=== PATIENT | female | born 1940 | race Caucasian/White ===

== ENCOUNTER → 2016-10-12 | Outpatient (CLI) | payer MEDICARE | END | disposition home or self-care (01) | LOC: CFH 11:08 | PROVIDERS: ATTEND Family Medicine | DX: Z12.31 Encounter for screening mammogram for malignant neoplasm of breast (principal) | CPT/HCPCS: G0202 ==

== ENCOUNTER 2017-01-19 07:49 | Day surgery (SDC) | payer MEDICARE ==
[~2017-01-19] VITALS: Ht 165.1 cm; Wt 69.4 kg
[~2017-01-19 07:49] MED LIST: CETI10TA24 PO; GABA800T PO; LACTATED RINGERS 1,000 ML IV SCH; PERP1TAB3 PO; ZONI100C36 PO
[2017-01-19] MEDS ORDERED: LACTATED RINGERS 1,000 ML IV SCH (08:17)
[2017-01-19 08:48] VITALS: BP 134/81
[2017-01-19] MEDS ORDERED: NEOSPORIN OINT, 15GM ONE (09:19)
[2017-01-19] MEDS ORDERED: FENTANYL PF 250 MCG/5ML ONE (09:21)
[2017-01-19] MEDS ORDERED: OXYcodone 5 MG/5 ML ORAL.SOL UDC PO PRN (10:00)
[2017-01-19] MEDS ORDERED: METOPROLOL 1 MG/ML, 5ML IV PRN (10:00)
[2017-01-19] MEDS ORDERED: PROMETHAZINE 25 MG/ML, 1ML IV PRN (10:00)
[2017-01-19] MEDS ORDERED: ACETAMINOPHEN 325 MG TABLET PO PRN (10:00)
[2017-01-19] MEDS ORDERED: FENTANYL PF 100 MCG/2ML IV PRN (10:00)
[2017-01-19] MEDS ORDERED: HYDROmorphone 1 MG/ML, 1ML IV PRN (10:00)
[2017-01-19] MEDS ORDERED: ALBUTEROL/IPRATROPIUM 2.5MG/0.5MG, 3 ML NPPB PRN (10:00)
[2017-01-19] MEDS ORDERED: hydrALAzine 20 MG/ML, 1ML IV PRN (10:00)
[2017-01-19] MEDS ORDERED: FENTANYL PF 100 MCG/2ML ONE (11:22)
[2017-01-19] MEDS ORDERED: ACETAMINOPHEN 650 MG/20.3 ML UDC ONE (11:22)
[2017-01-19] MEDS ORDERED: OXYcodone 5 MG/5 ML ORAL.SOL UDC ONE (11:22)
[2017-01-19] MEDS ORDERED: ROCURONIUM 10 MG/ML ONE (15:41)
[2017-01-19] MEDS ORDERED: PROPOFOL 10 MG/ML, 20ML ONE (15:41)
[2017-01-19] MEDS ORDERED: GLYCOPYRROLATE 0.2MG/1ML ONE (15:41)
[2017-01-19] MEDS ORDERED: DEXAMETHASONE 4 MG/ML, 1ML ONE (15:41)
[2017-01-19] MEDS ORDERED: CEFAZOLIN 1,000 MG ONE (15:41)
[2017-01-19] MEDS ORDERED: EPHEDRINE 50 MG/ML, 1ML ONE (15:41)
[2017-01-19] MEDS ORDERED: NEOSTIGMINE 1 MG/ML, 10ML ONE (15:41)
[2017-01-19] MEDS ORDERED: ONDANSETRON 2MG/ML, 2ML ONE (15:41)
[2017-01-20] MEDS ORDERED: OXYC5CAP2 PO (19:02)
[2017-02-09] MEDS ORDERED: DOCU100T6 PO (15:23)
[2017-02-09] MEDS ORDERED: VITA100020 PO (15:23)
[2017-02-09] MEDS ORDERED: METH500T37 PO (15:23)
== END 2017-01-19 13:30 ==
LOC: OUT 07:49
PROVIDERS: ATTEND Orthopaedic Surgery
DX: M84.552A Pathological fracture in neoplastic disease, left femur, initial encounter for fracture (principal); Z85.3 Personal history of malignant neoplasm of breast; Z90.49 Acquired absence of other specified parts of digestive tract; Z98.890 Other specified postprocedural states; Z88.1 Allergy status to other antibiotic agents; Z91.018 Allergy to other foods
CPT/HCPCS: 27187; 73552; 76000; 82962; 88305; 88341; 88342; 88360; 93005; C1713; J0690; J1100; J2405; J2704; J2710; J3010; J7120; J3490; G0461

== ENCOUNTER 2017-01-20 16:37 | Observation (INO) | payer MEDICARE ==
[~2017-01-20] VITALS: Ht 165.1 cm; Wt 72.6 kg
[~2017-01-20 16:37] MED LIST changes: -LACTATED RINGERS 1,000 ML IV SCH; +ZONI100C13 PO; -ZONI100C36 PO
[2017-01-20 18:56] LABS: HEMATOCRIT 34.3 % (34.6-47.8); HEMOGLOBIN 11.6 g/dL (11.7-16.4); WHITE BLOOD COUNT 8.9 x10^3/uL (3.4-10)
[2017-01-20] MEDS ORDERED: SODIUM CHLORIDE FLUSH 10ML SYR IVF ONE (19:00)
[2017-01-20] MEDS ORDERED: HYDROmorphone 1 MG/ML, 1ML IVPush PRN (19:00)
[2017-01-20] MEDS ORDERED: ONDANSETRON 2MG/ML, 2ML IVPush ONE (19:00)
[2017-01-20] MEDS ORDERED: OXYC5CAP4 PO (19:02)
[2017-01-20 19:08] LABS: BLOOD UREA NITROGEN 19 mg/dL (7-18)
[2017-01-20] MEDS ORDERED: HYDROmorphone 1 MG/ML, 1ML ONE ×2 (19:11→19:41)
[2017-01-20] MEDS ORDERED: ONDANSETRON 2MG/ML, 2ML ONE (19:11)
[2017-01-20] MEDS: PERPHENAZINE 2 MG TABLET PO SCH (22:22)
[2017-01-20] MEDS: AMITRIPTYLINE 10 MG TABLET PO SCH (22:22)
[2017-01-20] MEDS ORDERED: POLYETHYLENE GLYCOL 17 GM PACKET PO PRN (22:30)
[2017-01-20] MEDS ORDERED: DOCUSATE 100 MG CAPSULE PO PRN (22:30)
[2017-01-20] MEDS ORDERED: ENOXAPARIN 40 MG/0.4 ML SQ SCH (22:30)
[2017-01-20] MEDS ORDERED: BISACODYL 10 MG SUPP PR PRN (22:30)
[2017-01-20] MEDS ORDERED: HYDROmorphone 1 MG/ML, 1ML IV PRN (22:30)
[2017-01-20 22:56] VITALS: BP 113/73
[2017-01-21 02:03] VITALS: BP 126/78
[2017-01-21] MEDS: OXYcodone IR 5MG TABLET PO PRN ×3 (05:45→14:47)
[2017-01-21] MEDS: GABAPENTIN 400 MG CAPSULE PO SCH ×2 (08:42→16:31)
[2017-01-21] MEDS: AMITRIPTYLINE 10 MG TABLET PO SCH ×2 (08:43→16:31)
[2017-01-21] MEDS: ZONISAMIDE 50 MG CAPSULE PO SCH ×2 (08:43→16:31)
[2017-01-21] MEDS: PERPHENAZINE 2 MG TABLET PO SCH ×2 (08:43→16:00)
[2017-01-21 08:47] VITALS: BP 112/73
[2017-01-21] MEDS ORDERED: LACTULOSE 10 GM/15 ML UDC PO SCH (09:00)
[2017-01-21] MEDS ORDERED: CETIRIZINE 10 MG TABLET PO SCH (09:00)
[2017-01-21] MEDS ORDERED: ONDANSETRON ODT 4 MG ONE (09:36)
[2017-01-21] MEDS: ONDANSETRON ODT 4 MG PO PRN ×2 (09:38→14:46)
[2017-01-21] MEDS ORDERED: ONDANSETRON 2MG/ML, 2ML IVPush PRN (10:00)
[2017-01-21 14:10] VITALS: BP 102/64
[2017-01-21 17:52] VITALS: BP 98/54
[2017-01-21] MEDS ORDERED: ONDA4TAB13 PO (18:32)
== END 2017-01-21 18:30 ==
LOC: ED 17:38 → INTOOBSV 21:34 → EDIP 21:34 → 4NOR 22:03
PROVIDERS: ADMIT Family Medicine; ATTEND Family Medicine
DX: T84.84XA Pain due to internal orthopedic prosthetic devices, implants and grafts, initial encounter (principal); M25.552 Pain in left hip; M25.562 Pain in left knee; G89.29 Other chronic pain; J30.2 Other seasonal allergic rhinitis; K22.4 Dyskinesia of esophagus; Y92.89 Other specified places as the place of occurrence of the external cause; Z90.49 Acquired absence of other specified parts of digestive tract; Z85.3 Personal history of malignant neoplasm of breast; Z85.830 Personal history of malignant neoplasm of bone
CPT/HCPCS: 36415; 73502; 73552; 80048; 85025; 93971; 96372; 96374; 96375; 97116; 97162; 97166; 99285; G0378; J1170; J1650; J2405; Q0162; Q0175

== ENCOUNTER → 2017-02-09 | Outpatient (CLI) | payer MEDICARE ==
[~2017-02-09] MED LIST changes: +DOCU100T6 PO; +METH500T37 PO; +ONDA4TAB13 PO; +OXYC5CAP2 PO; +VITA100020 PO; -ZONI100C13 PO; +ZONI100C36 PO
[2017-02-09 16:22] LABS: PATH.CAST-FLAG NOT PRESENT; SPERM-FLAG NOT PRESENT; SRC-FLAG NOT PRESENT; XTAL-FLAG NOT PRESENT; YLC-FLAG NOT PRESENT
[2017-02-09 16:33] LABS: BLOOD UREA NITROGEN 15 mg/dL (7-18)
[2017-02-09 16:37] LABS: ASPARTATE AMINO TRANSFERASE 14 U/L (15-37)
[2017-02-09 16:41] LABS: HEMATOCRIT 33.2 % (34.6-47.8); HEMOGLOBIN 11.1 g/dL (11.7-16.4); HIV 1&2 ANTIBODY SCREEN Nonreactive (Nonreactive); HIV-1 p24 ANTIGEN Nonreactive (Nonreactive); WHITE BLOOD COUNT 5.9 x10^3/uL (3.4-10)
== END | disposition home or self-care (01) ==
LOC: STAR 14:35
PROVIDERS: ATTEND Orthopaedic Surgery Orthopaedic Surgery of the Spine
DX: Z01.811 Encounter for preprocedural respiratory examination (principal); M48.54XA Collapsed vertebra, not elsewhere classified, thoracic region, initial encounter for fracture; R79.1 Abnormal coagulation profile; R82.99 Other abnormal findings in urine
CPT/HCPCS: 36415; 71020; 80053; 80074; 81001; 85025; 85610; 85651; 85730; 86703; 87086; 87899; G0435

== ENCOUNTER 2017-02-22 10:59 | Day surgery (SDC) | payer MEDICARE ==
[~2017-02-22] VITALS: Ht 165.1 cm; Wt 69.1 kg
[2017-02-22] MEDS ORDERED: LACTATED RINGERS 1,000 ML IV SCH (11:41)
[2017-02-22 12:16] VITALS: BP 149/85
[2017-02-22] MEDS ORDERED: FENTANYL PF 100 MCG/2ML ONE ×2 (12:54→15:55)
[2017-02-22] MEDS ORDERED: BUPIVACAINE/PF 0.5% ONE (13:54)
[2017-02-22] MEDS ORDERED: EPINEPHRINE 1 MG/ML, 1ML ONE (13:55)
[2017-02-22] MEDS ORDERED: LIDOCAINE/PF 1%, 30ML ONE (13:55)
[2017-02-22] MEDS ORDERED: DEXAMETHASONE 4 MG/ML, 1ML ONE (14:24)
[2017-02-22] MEDS ORDERED: SUCCINYLCHOLINE 20 MG/ML, 10ML ONE (14:24)
[2017-02-22] MEDS ORDERED: ONDANSETRON 2MG/ML, 2ML ONE (14:24)
[2017-02-22] MEDS ORDERED: PROPOFOL 10 MG/ML, 20ML ONE (14:24)
[2017-02-22] MEDS ORDERED: CEFAZOLIN 1,000 MG ONE (14:24)
[2017-02-22] MEDS ORDERED: OMNIPAQUE 180 MG/ML, 20ML VIAL IT ONE ×2 (15:05)
[2017-02-22] MEDS ORDERED: OMNIPAQUE 180 MG/ML, 20ML VIAL ONE (15:29)
[2017-02-22] MEDS ORDERED: OXYcodone 5 MG/5 ML ORAL.SOL UDC PO PRN (15:30)
[2017-02-22] MEDS ORDERED: ACETAMINOPHEN 325 MG TABLET PO PRN (15:30)
[2017-02-22] MEDS ORDERED: METOPROLOL 1 MG/ML, 5ML IV PRN (15:30)
[2017-02-22] MEDS ORDERED: PROMETHAZINE 25 MG/ML, 1ML IV PRN (15:30)
[2017-02-22] MEDS ORDERED: HYDROmorphone 1 MG/ML, 1ML IV PRN (15:30)
[2017-02-22] MEDS ORDERED: hydrALAzine 20 MG/ML, 1ML IV PRN (15:30)
[2017-02-22] MEDS ORDERED: ALBUTEROL SULFATE 2.5 MG/3 ML NPPB PRN (15:30)
[2017-02-22] MEDS ORDERED: ACETAMINOPHEN 650 MG/20.3 ML UDC ONE (15:55)
[2017-02-22] MEDS ORDERED: OXYcodone 5 MG/5 ML ORAL.SOL UDC ONE ×2 (15:56→15:58)
[2017-02-22] MEDS: FENTANYL PF 100 MCG/2ML IV PRN ×3 (15:58→16:13)
== END 2017-02-22 17:20 ==
LOC: OUT 10:59
PROVIDERS: ATTEND Orthopaedic Surgery Orthopaedic Surgery of the Spine
DX: M84.58XA Pathological fracture in neoplastic disease, other specified site, initial encounter for fracture (principal); C50.911 Malignant neoplasm of unspecified site of right female breast; C41.2 Malignant neoplasm of vertebral column; Z85.820 Personal history of malignant melanoma of skin; Z90.11 Acquired absence of right breast and nipple; Z90.49 Acquired absence of other specified parts of digestive tract; Z98.890 Other specified postprocedural states; Z88.1 Allergy status to other antibiotic agents
CPT/HCPCS: 22513; 22515; 72072; 76000; 88307; 88311; C1713; J0171; J0330; J0690; J1100; J2405; J2704; J3010; J3490; Q9965

== ENCOUNTER → 2017-03-11 | Outpatient (CLI) | payer MEDICARE | END | disposition home or self-care (01) | LOC: ROC 09:09 | PROVIDERS: ATTEND Radiology Radiation Oncology | DX: C50.911 Malignant neoplasm of unspecified site of right female breast (principal); C78.7 Secondary malignant neoplasm of liver and intrahepatic bile duct; C79.51 Secondary malignant neoplasm of bone | CPT/HCPCS: 99214; G0463 ==

== ENCOUNTER 2017-03-17 07:00 | Day surgery (SDC) | payer MEDICARE ==
[~2017-03-17] VITALS: Ht 165.1 cm; Wt 69.5 kg
[2017-03-17 07:43] VITALS: BP 157/75
[2017-03-17] MEDS ORDERED: SODIUM CHLORIDE 0.9% 1,000 ML IV SCH (07:45)
[2017-03-17] MEDS ORDERED: LIDOCAINE 1%, 20ML ONE (07:57)
[2017-03-17] MEDS ORDERED: FENTANYL PF 100 MCG/2ML ONE (07:58)
[2017-03-17] MEDS ORDERED: MIDAZOLAM 1 MG/ML, 5ML ONE (07:58)
[2017-03-17] MEDS ORDERED: NALOXONE 1 MG/ML, 2ML ONE (07:59)
[2017-03-17] MEDS ORDERED: FLUMAZENIL 0.1 MG/1 ML, 5ML ONE (07:59)
[2017-03-17] MEDS ORDERED: CEFAZOLIN PMX 1GM/50ML 50 ML IV ONE (08:30)
== END 2017-03-17 10:50 ==
LOC: OUT 07:00
PROVIDERS: ATTEND Internal Medicine Hematology & Oncology
DX: Z45.2 Encounter for adjustment and management of vascular access device (principal); C50.919 Malignant neoplasm of unspecified site of unspecified female breast
CPT/HCPCS: 36561; 76937; 77001; 99156; 99157; C1788; C1894; J1642; J2250; J3010; J3490; J2310

== ENCOUNTER → 2017-04-16 | Outpatient (CLI) | payer MEDICARE | END | disposition home or self-care (01) | LOC: ROC 09:09 | PROVIDERS: ATTEND Radiology Radiation Oncology | DX: C79.51 Secondary malignant neoplasm of bone (principal); C50.911 Malignant neoplasm of unspecified site of right female breast | CPT/HCPCS: 99212; G0463 ==

== ENCOUNTER → 2017-04-16 | Outpatient (CLI) | payer MEDICARE | END | disposition home or self-care (01) | LOC: CFH 11:02 | PROVIDERS: ATTEND Radiology Radiation Oncology | DX: J98.11 Atelectasis (principal); C79.51 Secondary malignant neoplasm of bone; C50.919 Malignant neoplasm of unspecified site of unspecified female breast | CPT/HCPCS: 71020 ==

== ENCOUNTER → 2017-07-08 | Outpatient (CLI) | payer MEDICARE ==
[~2017-07-08] MED LIST changes: +OMNIPAQUE 350 MG/ML, 100ML BOTTLE ONE
== END ==
LOC: CFH 11:56
PROVIDERS: ATTEND Internal Medicine Hematology & Oncology
DX: J84.10 Pulmonary fibrosis, unspecified (principal); J90 Pleural effusion, not elsewhere classified; J98.11 Atelectasis; R91.8 Other nonspecific abnormal finding of lung field; G31.89 Other specified degenerative diseases of nervous system; K76.89 Other specified diseases of liver; C50.919 Malignant neoplasm of unspecified site of unspecified female breast
CPT/HCPCS: 70460; 71260; 74177; Q9967

== ENCOUNTER → 2017-09-06 | Outpatient (CLI) | payer MEDICARE ==
[~2017-09-06] MED LIST changes: -OMNIPAQUE 350 MG/ML, 100ML BOTTLE ONE
== END ==
LOC: ROC 11:35
PROVIDERS: ATTEND Radiology Radiation Oncology
DX: Z08 Encounter for follow-up examination after completed treatment for malignant neoplasm (principal); C79.51 Secondary malignant neoplasm of bone; C79.81 Secondary malignant neoplasm of breast
CPT/HCPCS: 99212; G0463

== ENCOUNTER → 2017-12-13 | Outpatient (CLI) | payer MEDICARE | LOC: ROC 10:09 | PROVIDERS: ATTEND Radiology Radiation Oncology | DX: C79.51 Secondary malignant neoplasm of bone (principal); Z85.3 Personal history of malignant neoplasm of breast | CPT/HCPCS: 99213; G0463 ==

== ENCOUNTER 2020-03-15 08:09 | Outpatient (CLI) | payer MEDICARE ==
[~2020-03-15 08:09] MED LIST changes: +CALC1CAP8 PO; -CETI10TA24 PO; +CETI10TA76 PO; +FULV250S3 IM; +MELO15TA24 PO; +METH750T2 PO; +PALB125C PO; +ZOLE4VIA5 IV
== END 2020-03-15 23:59 | disposition home or self-care (01) ==
LOC: ROC 08:09
PROVIDERS: ATTEND Radiology Radiation Oncology
DX: C79.51 Secondary malignant neoplasm of bone (principal); Z85.3 Personal history of malignant neoplasm of breast
CPT/HCPCS: 99213; G0463